=== PATIENT | female | born 2000 | race Caucasian/White ===

== ENCOUNTER → 2019-12-12 | Outpatient (CLI) | payer BC ==
--- NOTE | 2019-12-13 07:32 | US ---
EXAMINATION TYPE: US pelvic complete DATE OF EXAM: 12/12/2019 COMPARISON: NONE CLINICAL HISTORY: N92.6 IRREGULAR MENSES. Irregular menses TECHNIQUE: Transabdominal (TA) Date of LMP: 12/05/19 EXAM MEASUREMENTS: Uterus: 6.5 x 2.6 x 3.5 cm Endometrial Stripe: 0.2 cm Right Ovary: 3.6 x 2.0 x 2.0 cm Left Ovary: 5.3 x 3.2 x 2.6 cm 1. Uterus: Anteverted 2. Endometrium: appears wnl 3. Right Ovary: follicles noted 4. Left Ovary: cystic area = 2.6 x 2.8 x 2.3cm. This appears anechoic without internal complexity. 5. Bilateral Adnexa: appears wnl 6. Posterior cul-de-sac: wnl IMPRESSION: Abnormal endometrial thickening in this patient with irregular menses. Physiologic follic les of both ovaries with anechoic simple appearing likely functional and benign left ovarian cyst saranya suring 2.8 cm.
== END | disposition home or self-care (01) ==
LOC: RADUSWWP 14:47
PROVIDERS: ATTEND Family Medicine
DX: R93.89 Abnormal findings on diagnostic imaging of other specified body structures (principal); N92.6 Irregular menstruation, unspecified
CPT/HCPCS: 76856